=== PATIENT | female | born 1940 | race Caucasian/White ===

== ENCOUNTER 2022-09-07 11:20 | Outpatient (CLI) | payer MEDICARE, OTHER, SELFPAY ==
--- NOTE | 2022-09-07 11:30 | CRLHL7_ITS ---
For Patients: As a result of the Century Cures Act, medical imaging exams and procedure reports are released immediately into your electronic medical record. You may view this report before your referring provider. If you have questions, please contact your health care provider. BILATERAL SCREENING MAMMOGRAM WITH COMPUTER-AIDED DETECTION AND TOMOSYNTHESIS TECHNIQUE: CC and MLO views were obtained. These mammographic images have been obtained using full-field digital technique. These mammographic images were interpreted with the benefit of computer-aided detection. Breast Tomosynthesis was used in this interpretation. COMPARISON FILM: 06/06/21, 09/01/19, 07/02/18. FINDINGS: The breasts are heterogeneously dense, which may obscure small masses IMPRESSION: There is no radiographic evidence for malignancy. ASSESSMENT: BI-RADS Category 1: Negative RECOMMENDATION: Routine screening mammogram in 1 year. A lay language report of this examination will be provided to the patient. Parish Chen M.D. Diagnostic Radiologist [email or web address] FARHANA/Dictated by: Parish Chen MD @ 09/10/2022 9:04:00 AM (Electronically Signed)
== END 2022-09-07 11:21 | disposition home or self-care (01) ==
LOC: MAMMO 11:20
PROVIDERS: PCP Internal Medicine; Visit Provider Internal Medicine
DX: Z12.31 Encounter for screening mammogram for malignant neoplasm of breast (principal); R92.2 Inconclusive mammogram
CPT/HCPCS: 77063; 77067

== ENCOUNTER 2022-12-19 16:12 | Emergency (ER) | payer MEDICARE, OTHER, SELFPAY ==
[2022-12-19 16:26] VITALS: BP 142/71; PULSE 88; RESP 20; TEMP 37.2; O2SAT 94; BMI 38.4
--- NOTE | 2022-12-19 17:21 | CRLHL7_ITS ---
For Patients: As a result of the Century Cures Act, medical imaging exams and procedure reports are released immediately into your electronic medical record. You may view this report before your referring provider. If you have questions, please contact your health care provider. INDICATION: COVID-19 positive. COMPARISON: None available. FINDINGS: PA and lateral views of the chest were obtained. There is mild hyperinflation, consistent with COPD. There is eventration of the right hemidiaphragm. The lungs are otherwise clear, with no sign of infiltrate to suggest COVID-19 infection. The heart is top-normal in size. The mediastinum is normal in appearance. There is mild scoliosis of the thoracic spine convex towards the right and of the upper lumbar spine convex towards the left. Multiple surgical clips are seen in the area of the gastric fundus.. IMPRESSION: No active disease seen in the chest. Specifically, nothing seem to suggest COVID-19 pneumonia. Dictated by Vikram Butts MD @ 12/19/2022 6:32:32 PM (Electronically Signed)
--- NOTE | 2022-12-19 17:36 | ED.GENADULT ---
HPI - General Adult General Chief complaint: Shortness of Breath/Dyspnea Stated complaint: COVID+ Today,Chest Tightness Time Seen by Provider: 12/19/22 16:32 History of Present Illness HPI narrative: This 82-year-old female comes in with a report of respiratory symptoms that began yesterday. She tested positive for COVID this morning. She states that she had a fever of 101? F and feels some tightness in her chest. She arrives here with normal vital signs including oximetry at 94%, respirations at 20, and temperature at 98.9?. She is not using accessory muscles for breathing. Related Data Home Medications Medication Instructions Recorded Confirmed amlodipine 5 mg tablet mg 12/19/22 omeprazole 20 mg capsule,delayed mg 12/19/22 release Previous Rx's Medication Instructions Recorded acetaminophen 300 mg-codeine 30 mg 1 tab PO Q6H PRN pain #20 tabs 12/19/22 tablet Allergies Allergy/AdvReac Type Severity Reaction Status Date / Time No Known Drug Allergies Allergy Verified 12/19/22 16:31 Review of Systems Status of ROS: Reports: 10 or more systems reviewed and unremarkable except as noted in History and below Narrative: Constitutional: No fevers, no weight gain or loss. Eyes: No discharge. No vision changes. HENT: No congestion, no sore throat, no ear pain. Cardiovascular: No palpitations. She does not report any chest pain but states that she has some tightness in her chest. Respiratory: No shortness of breath, no wheezes, no cough. Gastrointestinal: No abdominal pain, no vomiting, no diarrhea. Genitourinary: No dysuria, no hematuria. Musculoskeletal: Normal range of motion. Skin: No rashes, no pruritis. Neurological: No dizziness, weakness, sensory change, speech change. Endo/Heme/Allergies: No bruising or bleeding. No polydipsia. Pysch: no suicidality, no anxiety, no insomnia. All other systems reviewed and are negative. [facility] Medical History (Updated 12/19/22 @ 19:00 by Wily Soria MD) B12 deficiency Exam Narrative: Exam Narrative: Constitutional: Well-developed, well-nourished, no acute distress. HEENT: Normocephalic, atraumatic. Neck: Normal range of motion. Nontender. Supple. Heart: Regular. No murmurs. Normal rate. Intact distal pulses. Lungs: Clear to auscultation. No chest discomfort. No wheezes, rhonchi, or rales. Abdomen: Normal bowel sounds. Nontender. No rebound tenderness. Genitalia: Deferred. Back: No midline tenderness. Normal range of motion. Extremities: Normal range of motion. No injury. Skin: Intact. No rash. Warm. No erythema or pallor. Neurologic: No altered sensation. No weakness. Alert and oriented. Psychiatric: No suicidality. No anxiety or depression. No insomnia. Nursing notes and vitals signs are reviewed. Const: Vital Signs, click to edit/add: Vital Signs - 24 hr 12/19/22 16:26 Temperature 98.9 F Pulse Rate [Pulse Oximeter] 88 Respiratory Rate 20 Blood Pressure [Ri ght Upper Arm] 142/71 H Pulse Oximetry 94 Oxygen Delivery Me thod Room Air Course Vital Signs Vital signs: Initial Vital Signs Temperature 98.9 F 12/19/22 16:26 Temperature Source Temporal Artery Scan 12/19/22 16:26 Pulse Rate 88 12/19/22 16:26 Respiratory Rate 20 12/19/22 16:26 Blood Pressure 142/71 H 12/19/22 16:26 Blood Pressure Mean 94 12/19/22 16:26 Blood Pressure Position Supine 12/19/22 16:26 Pulse Oximetry 94 12/19/22 16:26 Oxygen Delivery Method 12/19/22 16:26 Vital Signs Temperature 98.9 F 12/19/22 16:26 Pulse Rate 88 12/19/22 16:26 Respiratory Rate 20 12/19/22 16:26 Blood Pressure 142/71 H 12/19/22 16:26 Pulse Oximetry 94 12/19/22 16:26 Oxygen Delivery Method 12/19/22 16:26 Temperature 98.9 F 12/19/22 16:26 Pulse Rate 88 12/19/22 16:26 Respiratory Rate 20 12/19/22 16:26 Blood Pressure 142/71 H 12/19/22 16:26 Pulse Oximetry 94 12/19/22 16:26 Oxygen Delivery Method 12/19/22 16:26 Medical Decision Making MDM Narrative Medical decision making narrative: This patient comes in with respiratory symptoms and was positive for COVID this morning. She was concerned about some chest tightness and states also that her mother when she was her age had a spot on her lungs. A chest x-ray was ordered and completed showing no acute findings. She is reassured with these results. I did prescribe Tylenol 3 for symptomatic relief and encouraged her to return if worsening symptoms happen. Imaging Data Chest x-ray: Radiologist's impression: No active disease seen in the chest. Specifically, nothing seem to suggest COVID-19 pneumonia. Discharge Plan Discharge Clinical Impression: COVID-19 Patient Disposition: Home, Self-Care Condition: Stable Additional Instructions: Take medication as needed and indicated. Use [id number] medicines also as needed and directed. Follow up with MD or return if worsening. Prescriptions: New acetaminophen-codeine 300-30 mg tablet 1 tab PO Q6H PRN (Reason: pain) Qty: 20 0RF No Action amlodipine 5 mg tablet Label Comments: TAKE 1 TABLET BY MOUTH DAILY omeprazole 20 mg capsule,delayed release(DR/EC) Label Comments: TAKE 1 CAPSULE BY MOUTH DAILY Follow Up/Referrals: uRby Timmons MD [Primary Care Provider] - Stand Alone Forms: [employer] Info Instructions
== END 2022-12-19 19:10 | disposition home or self-care (01) ==
PROVIDERS: Emergency Provider Emergency Medicine Emergency Medical Services; PCP Internal Medicine
DX: U07.1 COVID-19 (principal)
CPT/HCPCS: 71046; 99283; 99284

== ENCOUNTER 2023-04-09 10:34 | Outpatient (CLI) | payer MEDICARE, OTHER, SELFPAY | END 2023-04-09 10:35 | disposition home or self-care (01) | PROVIDERS: PCP Internal Medicine; Visit Provider Internal Medicine | DX: I10 Essential (primary) hypertension (principal); E53.8 Deficiency of other specified B group vitamins; E66.9 Obesity, unspecified; E04.1 Nontoxic single thyroid nodule; Z98.84 Bariatric surgery status; Z13.21 Encounter for screening for nutritional disorder; E21.1 Secondary hyperparathyroidism, not elsewhere classified | CPT/HCPCS: 82310; 82525; 82607; 82728; 83735; 83970; 84443; 84446; 84590; 84597; 84630 ==

== ENCOUNTER 2024-04-16 09:03 | Outpatient (CLI) | payer MEDICARE, OTHER, SELFPAY ==
--- OUTSIDE RECORDS SUMMARY | 2024-04-16 09:07 | XMS_ITS | Encounter Summary ---
Author Organization [facility] Address [address] [place] [address]. [place] [address] Care Team Providers Care People Greeter Name Role Phone No Ref-Primary, Physician Primary Care Provider Encounter Details Date Type Department Care Team (Late st Contact Info) Description 11/23/2016 Records - [facility] CONVERSION Scan, Non-Provider Social History Tobacco Use Types Packs/Day Years Used Date Smoking Tobacco: Never Assessed Sex and Gender Information Value Date Recorded Sex Assigned at Not on file Gender Identity Not on file Sexual Orientation Not on file documented as of this encounter Plan of Treatment Not on file documented as of this encounter Visit Diagnoses Not on filedocumented in this encounter Care Teams People Greeter Relationship Specialty Start Date End Date No Ref-Primary, Physician PCP - General 09/28/19 documented as of this encounter
--- OUTSIDE RECORDS SUMMARY | 2024-04-16 09:07 | XMS_ITS | Clinical Summary ---
Author Organization [facility] Address [address] [place] [address]. [place] [address] Care Team Providers Care Division Chief Name Role Phone No Ref-Primary, Physician Primary Care Provider Allergies No known active allergies Medications Medication Sig Dispensed Refills Start Date End Date Status senna-docusate (SENNOSIDES-DOCUSATE SODIUM) 8.6-50 mg tablet [SENNA-DOCUSATE (SENNOSIDES-DOCUSA TE SODIUM) 8.6-50 MG TABLET] Take 1 tablet by mouth daily as needed. 10/12/2016 Active oxyCODONE-acetaminophe n (PERCOCET) 5-325 mg per tablet [OXYCODONE-ACETAMI NOPHEN (PERCOCET) 5-325 MG PER TABLET] Take 1 tablet by mouth every 4 (four) hours as needed for pain. 10/12/2016 Active cyanocobalamin 1,000 mcg/mL injection [CYANOCOBALAMIN 1,000 MCG/ML INJECTION] Inject 1,000 mcg into the shoulder, thigh, or buttocks. Every other month 10/12/2016 Active omeprazole (PRILOSEC) 20 MG capsule [OMEPRAZOLE (PRILOSEC) 20 MG CAPSULE] Take 20 mg by mouth daily. 10/12/2016 Active cholecalciferol, vitamin D3, 2,000 unit Tab [CHOLECALCIFEROL, VITAMIN D3, 2,000 UNIT TAB] Take 1 tablet by mouth daily. 10/12/2016 Active Resolved Problems Problem Noted Date Diagnosed Date Resolved Date Stiffness of right hand joint 09/28/2019 11/02/2019 Immunizations Name Administration Dates Next Due Flu, Unspecified 10/01/2016 Family History Medical History Relation Comments Alcoholism Father of alcohol use related complications. Cancer Mother of lung can cer. Relation Status Comments Father Mother Social History Tobacco Use Types Packs/Day Years Used Date Smoking Tobacco: Never Smokeless Tobacco: Never Alcohol Use Standard Drinks/Week Comments Yes 0 (1 standard drink = 0.6 oz pur e alcohol) Alcoholic Drinks/day: Rare Sex and Gender Information Value Date Recorded Sex Assigned at Not on file Gender Identity Not on file Sexual Orientation Not on file Last Filed Vital Signs Vital Sign Reading Time Taken Comments Blood Pressure - - Pulse - - Temperature - - Respiratory Rate - - Oxygen Saturation - - Inhaled Oxygen Concentration - - Weight 102.9 kg (226 lb 12.8 oz) 11/23/2016 5:43 AM WINDOWS ADMIN Height 162.6 cm (5' 4) 11/21/2016 5:20 PM WINDOWS ADMIN Body Mass Index 38.93 11/21/2016 5:20 PM WINDOWS ADMIN Plan of Treatment Not on file Medical Devices Implanted Type Area Licensed Chemical Spray Technician Device Identifier Shelf Expiration Date Model / Serial / Lot Stent Percuflex Plus 6x26 [id number] - Sna Implanted:Qty : 1 on 10/15/2016 Stent Right: [employer]ter [employer] [id number] 02/06/2019 175-263 / NA / [id number] Stent Percuflex Plus 6x26 [id number] Implanted:Qty : 1 on 10/30/2016 Stent Right: [employer] 07/23/2019 [id number] / / [id number] Left Total Knee Care Teams Division Chief Relationship Specialty Start Date End Date No Ref-Primary, Physician PCP - General 09/28/19
--- OUTSIDE RECORDS SUMMARY | 2024-04-16 09:07 | XMS_ITS | Referral Summary ---
Author Organization [facility] Address [address] [place] [address]. [place] [address] Care Team Providers Care Sheetrock Applicator Name Role Phone No Ref-Primary, Physician Primary [...] Administration Dates Next Due Flu, Unspecified 10/01/2016 Social History Tobacco Use Types Packs/Day Years [...] (226 lb 12.8 oz) 11/23/2016 5:43 AM PACKING FLOOR WORKER Height 162.6 cm (5' 4) 11/21/2016 5:20 PM PACKING FLOOR WORKER Body Mass Index 38.93 11/21/2016 5:20 PM PACKING FLOOR WORKER Plan of Treatment Not on file Medical Devices Implanted Type Area Tutoring Manager Device Identifier Shelf Expiration Date Model / Serial / Lot Stent Percuflex Plus 6x26 [id number] - Sna Implanted:Qty : 1 on 10/15/2016 Stent Right: [employer]ter [employer] [id number] 02/06/2019 175-263 / NA / [id number] Stent Percuflex Plus 6x26 [id number] Implanted:Qty : 1 on 10/30/2016 Stent Right: [employer] 07/23/2019 [id number] / / [id number] Left Total Knee Care Teams Sheetrock Applicator Relationship Specialty Start Date End Date No Ref-Primary, Physician PCP - General 09/28/19
--- OUTSIDE RECORDS SUMMARY | 2024-04-16 09:07 | XMS_ITS | Clinical Summary ---
Author Organization [email or web address] Address [place], [place] [address] Care Team Providers Care Automobile Relocation Engineer Name Role Phone Geneva Monsivais MD Primary Care Provider Breonna lable Allergies No known active allergies Medications Medication Sig Dispensed Refills Start Date End Date Status furosemide (LASIX) 20 mg tabletIndications:Gregorytaran albert, unspecified type Take 1 tablet by mouth 2 times daily. 90 tablet 2 07/10/2019 Active amLODIPine (NORVASC) 2.5 mg tablet Take 1 tablet by mouth once daily. 0 07/20/2019 Active cyanocobalamin (VITAMIN B12) 1,000 mcg/mL injection Inject 1 mL intramuscular. Every other month. 0 07/20/2019 Active omeprazole (PRILOSEC) 20 mg Delayed-Release capsule Take 1 capsule by mouth once daily before a meal. 0 07/20/2019 Active Cholecalciferol, Vitamin D3, (VITAMIN D-3) 2,000 unit tablet Take 1 tablet by mouth once daily. 0 07/20/2019 Active Social History Tobacco Use Types Packs/Day Years Used Date Smoking Tobacco: Never Smokeless Tobacco: Never Alcohol Use Standard Drinks/Week Comments Yes 0 (1 standard drink = 0.6 oz pur e alcohol) very rare Sex and Gender Information Value Date Recorded Sex Assigned at Not on file Gender Identity Not on file Sexual Orientation Not on file Obstetrics History Last Filed Vital Signs Vital Sign Reading Time Taken Comments Blood Pressure 160/80 09/18/2019 10:27 AM CDT Pulse 59 09/18/2019 10:27 AM CDT Temperature - - Respiratory Rate 16 07/20/2019 1:28 PM CDT Oxygen Saturation 96% 07/20/2019 1:28 PM CDT on room air Inhaled Oxygen Concentration - - Weight 103.4 kg (228 lb) 09/18/2019 10:27 AM CDT Height 165.1 cm (5' 5) 09/18/2019 10:27 AM CDT Body Mass Index 37.94 09/18/2019 10:27 AM CDT Plan of Treatment Health Maintenance Due Date Last Done Comments Tdap 1953 Depression screening for age 12+ 1954 Tetanus booster 1962 Zoster (shingles) series for age 50+ (1 of 2) 06/28/19 92 DEXA/DXA scan for age 65+ 2007 Pneumococcal series for age 65+ (1 of 1 - PCV) 007 BMI (ht and wt on same day) for age 18+ 07/20/2020 0 07/20/2019 COVID-19 vaccine series ( - 2022-24 season) 3 Influenza for age 65+ 07/26/2024 Care Teams Automobile Relocation Engineer Relationship Specialty Start Date End Date Geneva Monsivais MD PCP - General Family Practice 07/07/19
== END 2024-04-16 09:04 | disposition home or self-care (01) ==
PROVIDERS: PCP Internal Medicine; Visit Provider Internal Medicine
DX: I10 Essential (primary) hypertension (principal); E53.8 Deficiency of other specified B group vitamins; M81.0 Age-related osteoporosis without current pathological fracture; Z98.84 Bariatric surgery status; Z13.21 Encounter for screening for nutritional disorder; Z13.29 Encounter for screening for other suspected endocrine disorder; E04.1 Nontoxic single thyroid nodule; Z13.0 Encounter for screening for diseases of the blood and blood-forming organs and certain disorders involving the immune mechanism
CPT/HCPCS: 80053; 82306; 82525; 82607; 82728; 83540; 83550; 83735; 84443; 84446; 84590; 84597; 84630

== ENCOUNTER 2024-05-29 22:06 | Emergency (ER) | payer MEDICARE, OTHER, SELFPAY ==
[2024-05-29 22:10] VITALS: BP 206/94; PULSE 86; RESP 18; TEMP 36.1; O2SAT 96; BMI 38.1
--- NOTE | 2024-05-29 22:33 | CRLHL7_ITS ---
For Patients: As a result of the Century Cures Act, medical imaging exams and procedure reports are released immediately into your electronic medical record. You may view this report before your referring provider. If you have questions, please contact your health care provider. INDICATION: Left abdominal pain, history of kidney stones. TECHNIQUE: CT of the abdomen and pelvis without IV contrast. Coronal and sagittal reconstructions. COMPARISON: CT of the abdomen and pelvis 12/04/2017. FINDINGS: The unenhanced liver, gallbladder, pancreas, and adrenal glands are normal in appearance. Stable small splenic hypodensities. No biliary dilation. The right kidney is severely atrophic. No right hydronephrosis or ureteral dilation. There is a 4 mm obstructing stone at the left ureterovesicular junction with moderate upstream left hydroureteronephrosis and perinephric fat stranding (series 2, image 131). 8 mm nonobstructing caliceal stone in the lower pole of the left kidney. Decompressed urinary bladder. Stable calcification in the right uterus. Postoperative changes of Pauline-en-Y gastric bypass. No small bowel dilation. Moderate amount of stool. The appendix is not identified. No intraperitoneal free air or fluid. No lymphadenopathy. Aortoiliac vascular calcifications. Small fat containing umbilical hernia. Postoperative changes of the upper anterior abdominal wall. Linear atelectasis or scarring in the lung bases. Few scattered small noncalcified pulmonary nodules measuring 2-3 mm. These are not definitely visualized on prior exam. Dense mitral annulus calcifications. Degenerative changes of the spine. IMPRESSION: 1. 4 mm obstructing stone at the left UVJ with moderate left hydroureteronephrosis. 2. The right kidney is severely atrophic. 3. Few noncalcified pulmonary nodules measuring 2-3 mm. Follow-up per Fleischner society guidelines. Please note that all CT scans at this facility use dose modulation, iterative reconstruction, and/or weight-based dosing when appropriate to reduce radiation dose to as low as reasonably achievable. Dictated by Myah Figueroa MD @ 05/29/2024 11:55:33 PM (Electronically Signed)
--- NOTE | 2024-05-29 22:34 | ED_ITS ---
HPI - General Adult General Chief complaint: Flank Pain Stated complaint: Severe Pain going from her L side to her back Time Seen by Provider: 05/29/24 22:29 History of Present Illness HPI narrative: This 83-year-old female comes in reporting left flank pain radiating down into her left abdomen and groin. These symptoms started today. She does have a history of kidney stones. She reports some dysuria symptoms with increased frequency in small amount being voided. Related Data Home Medications ?Medication ?Instructions ?Recorded ?Confirmed cholecalciferol (vitamin D3) 50 2,000 unit PO DAILY 01/22/23 04/16/24 mcg (2,000 unit) tablet cyanocobalamin (vitamin B-12) 1,000 mcg IM MONTHLY 01/22/23 04/16/24 1,000 mcg/mL injection solution multivitamin (Multiple Vitamins 1 tab PO QAM 01/22/23 04/16/24 tablet) Previous Rx's ?Medication ?Instructions ?Recorded amlodipine 5 mg tablet 5 mg PO QDAY #90 tabs 04/16/24 furosemide 20 mg tablet 20 mg PO QAM #90 tabs 04/16/24 valsartan 160 mg tablet 160 mg PO DAILY #90 tabs 04/16/24 omeprazole 20 mg capsule,delayed 20 mg PO QDAY #90 caps 05/12/24 release Allergies Allergy/AdvReac Type Severity Reaction Status Date / Time No Known Drug Allergies Allergy Verified 04/16/24 08:18 Review of Systems Status of ROS: Reports: 10 or more systems reviewed and unremarkable except as noted in History and below Narrative: Constitutional: No fevers, no weight gain or loss. Eyes: No discharge. No vision changes. HENT: No congestion, no sore throat, no ear pain. Cardiovascular: No chest pain, no palpitations. Respiratory: No shortness of breath, no wheezes, no cough. Gastrointestinal: No vomiting, no diarrhea. Left flank pain and abdominal pain as described above. Genitourinary: No dysuria, no hematuria. Musculoskeletal: Normal range of motion. Skin: No rashes, no pruritis. Neurological: No dizziness, weakness, sensory change, speech change. Endo/Heme/Allergies: No bruising or bleeding. No polydipsia. Pysch: no suicidality, no anxiety, no insomnia. All other systems reviewed and are negative. [facility] Medical History (Updated 05/30/24 @ 00:08 by Wily Soria MD) Thyroid nodule ?E04.1 - Nontoxic single thyroid nodule (ICD-10) Colon polyp ?K63.5 - Polyp of colon (ICD-10) Surgical History (Updated 04/09/23 @ 10:25 by Ruby Timmons MD) History of basal cell carcinoma excision ?Z98.890 - Other specified postprocedural states (ICD-10) ?Z85.828 - Personal history of other malignant neoplasm of skin (ICD-10) Status post oophorectomy History of total left knee replacement ?Z96.652 - Presence of left artificial knee joint (ICD-10) History of blepharoplasty ?Z98.890 - Other specified postprocedural states (ICD-10) History of arthroscopic knee surgery ?Z98.890 - Other specified postprocedural states (ICD-10) History of appendectomy ?Z90.49 - Acquired absence of other specified parts of digestive tract (ICD- 10) Social History (Updated 04/15/24 @ 10:12 by Ruby Agarwal ~ [facility]) What is your current living situation?: I presently have a place to live Problems where you live: no known problems In the past 12 months, utilities in danger of being shut off: no In past 12 months, lack of transportation kept you from medical appts, meetings, work, or getting things needed for daily living: no In the past 12 mos, have been you worried that your food would run out before you had money to buy more?: never true In the past 12 mos, the food you bought just didn't last and you didn't have money to buy more?: never true Smoking Status: Never smoker How often do you have a drink containing alcohol: never AUDIT-C Alcohol total score: 0 Non-prescribed substance use: denies use How often does anyone, including family, friends and others, physically hurt you : never How often does anyone, including family, friends and others, insult or talk down to you: never How often does anyone, including family, friends and others, threaten you with harm: never How often does anyone, including family, friends and others, scream or curse at you: never Little interest or pleasure in doing things: not at all Feeling down, depressed, or hopeless: not at all Exam Narrative: Exam Narrative: Constitutional: Well-developed, well-nourished, no acute distress. HEENT: Normocephalic, atraumatic. Neck: Normal range of motion. Nontender. Supple. Heart: Regular. No murmurs. Normal rate. Intact distal pulses. Lungs: Clear to auscultation. No chest discomfort. No wheezes, rhonchi, or rales. Abdomen: Normal bowel sounds. Left abdomen and flank pain. No rebound tenderness. Genitalia: Deferred. Back: No midline tenderness. Normal range of motion. Extremities: Normal range of motion. No injury. Skin: Intact. No rash. Warm. No erythema or pallor. Neurologic: No altered sensation. No weakness. Alert and oriented. Psychiatric: No suicidality. No anxiety or depression. No insomnia. Nursing notes and vitals signs are reviewed. Const: Vital Signs, click to edit/add: Vital Signs - 24 hr 05/29/24 22:10 Temperature 97.0 F L Pulse Rate [Left P ulse Oximeter] 86 Respiratory Rate 18 Blood Pressure [Ri ght Upper Arm] 206/94 H Pulse Oximetry 96 Oxygen Delivery Me thod Room Air Course Vital Signs Vital signs: Initial Vital Signs Temperature 97.0 F L 05/29/24 22:10 Temperature Source Temporal Artery Scan 05/29/24 22:10 Pulse Rate 86 05/29/24 22:10 Pulse Rhythm Regular 05/29/24 22:10 Respiratory Rate 18 05/29/24 22:10 Blood Pressure 206/94 H 05/29/24 22:10 Blood Pressure Mean 131 H 05/29/24 22:10 Blood Pressure Position Sitting 05/29/24 22:10 Pulse Oximetry 96 05/29/24 22:10 Oxygen Delivery Method Room Air 05/29/24 22:10 Vital Signs Temperature 97.0 F L 05/29/24 22:10 Pulse Rate 86 05/29/24 22:10 Respiratory Rate 18 05/29/24 22:10 Blood Pressure 206/94 H 05/29/24 22:10 Pulse Oximetry 96 05/29/24 22:10 Oxygen Delivery Method Room Air 05/29/24 22:10 Temperature 97.0 F L 05/29/24 22:10 Pulse Rate 86 05/29/24 22:10 Respiratory Rate 18 05/29/24 22:10 Blood Pressure 206/94 H 05/29/24 22:10 Pulse Oximetry 96 05/29/24 22:10 Oxygen Delivery Method Room Air 05/29/24 22:10 Medications Administered Medications: Discontinued Medications Generic Name Dose Route Start Last Admin Trade Name Floyd PRN Reason Stop Dose Admin Hydromorphone HCl 0.5 mg 05/29/24 22:32 05/29/24 23:02 Hydromorphone 0.5 Mg/0.5 Ml Inj IVP 05/29/24 22:33 0.5 mg ONCE ONE Administration Ketorolac Tromethamine 30 mg 05/29/24 22:32 05/29/24 23:02 Ketorolac 30 Mg/Ml Inj IVP 05/29/24 22:33 30 mg ONCE ONE Administration Ondansetron HCl 4 mg 05/29/24 22:32 05/29/24 23:02 Ondansetron 2 Mg/Ml Inj IVP 05/29/24 22:33 4 mg ONCE ONE Administration Medical Decision Making MDM Narrative Medical decision making narrative: This patient comes in with left flank pain that is suspicious for kidney stone. She has had kidney stones in the past. CT imaging of the abdomen and pelvis does show a 4 mm stone at the left ureterovesical junction. The patient did have an IV established where she received Toradol and Dilaudid with excellent results. She is okay to be discharged home and did receive [facility] prescriptions for Toradol and tramadol. Lab Data Labs: Lab Results 05/29/24 Range/Units 22:48 Urine Color Yellow (Yellow) Urine Appearance Clear (Clear) Urine pH 7.5 (5.0-8.5) Ur Specific [place] 1.020 (1.000-1.030) Urine Protein 1+ A (Negative) Urine Glucose (UA) Negative (Negative) Urine Ketones Negative (Negative) Urine Blood 1+ A (Negative) Urine Nitrite Negative (Negative) Urine Bilirubin Negative (Negative) Urine Urobilinogen 0.2 (0.2-1.0) Ur Leukocyte Esterase 1+ A (Negative) Urine RBC 2-5 A (0-2) Urine WBC 2-5 (0-5) Ur Squamous Epith Cells Moderate A (None-Few) Urine Bacteria None (None) Imaging Data CT scan - abdomen: Radiologist's impression: 1. 4 mm obstructing stone at the left UVJ with moderate left hydroureteronephrosis. 2. The right kidney is severely atrophic. 3. Few noncalcified pulmonary nodules measuring 2-3 mm. Follow-up per Fleischner society guidelines. Discharge Plan Discharge Clinical Impression: Calculus, ureteral Patient Disposition: Home w/ Parent or Adult Condition: Improved Additional Instructions: Take medication as needed and directed. Follow up with MD return if worsening. Prescriptions: No Action multivitamin [Multiple Vitamins] Tablet 1 tab PO QAM cyanocobalamin (vitamin B-12) 1,000 mcg/mL solution 1,000 mcg IM MONTHLY cholecalciferol (vitamin D3) 50 mcg (2,000 unit) tablet 2,000 unit PO DAILY valsartan 160 mg tablet 160 mg PO DAILY Qty: 90 3RF furosemide 20 mg tablet 20 mg PO QAM Qty: 90 3RF amlodipine 5 mg tablet 5 mg PO QDAY Qty: 90 3RF Patient Comments: TAKE 1 TABLET BY MOUTH DAILY omeprazole 20 mg capsule,delayed release(DR/EC) 20 mg PO QDAY Qty: 90 3RF Patient Comments: TAKE 1 CAPSULE BY MOUTH DAILY Follow Up/Referrals: Ruby Timmons MD [Primary Care Provider] - Stand Alone Forms: [employer] Info Instructions
--- OUTSIDE RECORDS SUMMARY | 2024-05-29 22:47 | XMS_ITS | Clinical Summary ---
Author Organization [facility] Address [address] [place] [address]. [place] [address] Care Team Providers Care Freight Tallier Name Role Phone No Ref-Primary, Physician Primary [...] (226 lb 12.8 oz) 11/23/2016 5:43 AM RELAY MAN Height 162.6 cm (5' 4) 11/21/2016 5:20 PM RELAY MAN Body Mass Index 38.93 11/21/2016 5:20 PM RELAY MAN Plan of Treatment Not on file Medical Devices Implanted Type Area Documentation Improvement Specialist Device Identifier Shelf Expiration Date Model / Serial / Lot Stent Percuflex Plus 6x26 175-263 - Sna Implanted:Qty : 1 on 10/15/2016 Stent Right: Ureter [employer] [id number] 02/06/2019 175-263 / NA / [id number] Stent Percuflex Plus 6x26 175-263 Implanted:Qty : 1 on 10/30/2016 Stent Right: Ureter [employer] 07/23/2019 175-263 / / [id number] Left Total Knee Care Teams Freight Tallier Relationship Specialty Start Date End Date No Ref-Primary, Physician PCP - General 09/28/19
--- OUTSIDE RECORDS SUMMARY | 2024-05-29 22:47 | XMS_ITS | Encounter Summary ---
Author Organization [facility] Address [address] [place] [address]. [place] [address] Care Team Providers Care Regulatory Compliance Engineer Name Role Phone No Ref-Primary, Physician Primary [...] on filedocumented in this encounter Care Teams Regulatory Compliance Engineer Relationship Specialty Start Date End Date No Ref-Primary, Physician PCP - General 09/28/19 documented as of this encounter
--- OUTSIDE RECORDS SUMMARY | 2024-05-29 22:47 | XMS_ITS | Referral Summary ---
Author Organization [facility] Address [address] [place] [address]. [place] [address] Care Team Providers Care Residential Care Officer Name Role Phone No Ref-Primary, Physician Primary [...] (226 lb 12.8 oz) 11/23/2016 5:43 AM DISTRIBUTION A CLASS LINEMAN Height 162.6 cm (5' 4) 11/21/2016 5:20 PM DISTRIBUTION A CLASS LINEMAN Body Mass Index 38.93 11/21/2016 5:20 PM DISTRIBUTION A CLASS LINEMAN Plan of Treatment Not on file Medical Devices Implanted Type Area Side Stitcher Device Identifier Shelf Expiration Date Model / Serial / Lot Stent Percuflex Plus 6x26 175-263 - Sna Implanted:Qty : 1 on 10/15/2016 Stent Right: Ureter [employer] [id number] 02/06/2019 175-263 / NA / [id number] Stent Percuflex Plus 6x26 175-263 Implanted:Qty : 1 on 10/30/2016 Stent Right: Ureter [employer] 07/23/2019 175-263 / / [id number] Left Total Knee Care Teams Residential Care Officer Relationship Specialty Start Date End Date No Ref-Primary, Physician PCP - General 09/28/19
--- OUTSIDE RECORDS SUMMARY | 2024-05-29 22:47 | XMS_ITS | Clinical Summary ---
Author Organization [facility] Address [place], [place] [address] Care Team Providers Care Slasher Sawyer Name Role Phone Geneva Monsivais MD Primary [...] Influenza for age 65+ 07/26/2024 Care Teams Slasher Sawyer Relationship Specialty Start Date End Date Geneva Monsivais MD PCP - General Family Practice 07/07/19
[2024-05-29 22:55] LABS: Appearance Urine Clear (Clear); Bilirubin Urine Negative (Negative); Blood Urine 1+ (Negative); Color Urine Yellow (Yellow); Glucose Urine Negative (Negative); Ketones Urine Negative (Negative); Leukocyte Esterase Urine 1+ (Negative); Nitrite Urine Negative (Negative); Protein Urine 1+ (Negative); Urobilinogen Urine 0.2 (0.2-1.0); pH Urine 7.5 (5.0-8.5)
[2024-05-29 23:00] VITALS: O2SAT 98
[2024-05-29] MEDS: KETOROLAC 30 MG/ML inj IVP (23:02)
[2024-05-29] MEDS: HYDROmorphone 0.5 mg/0.5 ml inj IVP (23:02)
[2024-05-29] MEDS: ONDANSETRON 2 MG/ML inj 4 MG IVP (23:02)
[2024-05-29 23:20] LABS: Squamous Epithelial Cell Urine Moderate (None-Few)
[2024-05-29 23:30] VITALS: BP 114/61; PULSE 51; RESP 12; O2SAT 94
[2024-05-30] VITALS: BP 117/71; PULSE 70; RESP 14; O2SAT 91
[2024-05-30 00:31] VITALS: BP 141/77; PULSE 86; RESP 14; TEMP 36.1
== END 2024-05-30 00:32 | disposition home or self-care (01) ==
PROVIDERS: Emergency Provider Emergency Medicine Emergency Medical Services; PCP Internal Medicine
DX: N20.1 Calculus of ureter (principal)
CPT/HCPCS: 74176; 81001; 81003; 87086; 94761; 96374; 96375; 99284; J1170; J1885; J2405

== ENCOUNTER 2024-06-11 08:21 | Outpatient (CLI) | payer MEDICARE, OTHER, SELFPAY ==
--- OUTSIDE RECORDS SUMMARY | 2024-06-11 08:23 | XMS_ITS | Clinical Summary ---
Author Organization [facility] Address [address] [place] [address]. [place] [address] Care Team Providers Care Streaming Media Specialist Name Role Phone No Ref-Primary, Physician Primary [...] (226 lb 12.8 oz) 11/23/2016 5:43 AM CARBIDER Height 162.6 cm (5' 4) 11/21/2016 5:20 PM CARBIDER Body Mass Index 38.93 11/21/2016 5:20 PM CARBIDER Plan of Treatment Not on file Medical Devices Implanted Type Area Cnc Wood Lathe Operator Device Identifier Shelf Expiration Date Model / Serial / Lot Stent Percuflex Plus 6x26 175-263 - Sna Implanted:Qty : 1 on 10/15/2016 Stent Right: U[employer]ter [employer] [id number] 02/06/2019 175-263 / NA / [id number] Stent Percuflex Plus 6x26 175-263 Implanted:Qty : 1 on 10/30/2016 Stent Right: [employer]ter [employer] 07/23/2019 175-263 / / [id number] Left Total Knee Care Teams Streaming Media Specialist Relationship Specialty Start Date End Date No Ref-Primary, Physician PCP - General 09/28/19
--- OUTSIDE RECORDS SUMMARY | 2024-06-11 08:23 | XMS_ITS | Clinical Summary ---
Author Organization [facility] Address [place], [place] [address] Care Team Providers Care Planer Feeder Name Role Phone Geneva Monsivais MD Primary [...] Influenza for age 65+ 07/26/2024 Care Teams Planer Feeder Relationship Specialty Start Date End Date Geneva Monsivais MD PCP - General Family Practice 07/07/19
--- OUTSIDE RECORDS SUMMARY | 2024-06-11 08:24 | XMS_ITS | Encounter Summary ---
Author Organization [facility] Address [address] [place] [address]. [place] [address] Care Team Providers Care Elastic Yarn Twister Helper Name Role Phone No Ref-Primary, Physician Primary [...] on filedocumented in this encounter Care Teams Elastic Yarn Twister Helper Relationship Specialty Start Date End Date No Ref-Primary, Physician PCP - General 09/28/19 documented as of this encounter
--- OUTSIDE RECORDS SUMMARY | 2024-06-11 08:24 | XMS_ITS | Referral Summary ---
Author Organization [facility] Address [address] [place] [address]. [place] [address] Care Team Providers Care Label Remover Name Role Phone No Ref-Primary, Physician Primary [...] (226 lb 12.8 oz) 11/23/2016 5:43 AM CARROTING MACHINE OPERATOR Height 162.6 cm (5' 4) 11/21/2016 5:20 PM CARROTING MACHINE OPERATOR Body Mass Index 38.93 11/21/2016 5:20 PM CARROTING MACHINE OPERATOR Plan of Treatment Not on file Medical Devices Implanted Type Area High Lift Mule Operator Device Identifier Shelf Expiration Date Model / Serial / Lot Stent Percuflex Plus 6x26 175-263 - Sna Implanted:Qty : 1 on 10/15/2016 Stent Right: Ureter [employer] [id number] 02/06/2019 175-263 / NA / [id number] Stent Percuflex Plus 6x26 175-263 Implanted:Qty : 1 on 10/30/2016 Stent Right: Ureter [employer] 07/23/2019 175-263 / / [id number] Left Total Knee Care Teams Label Remover Relationship Specialty Start Date End Date No Ref-Primary, Physician PCP - General 09/28/19
[2024-06-11 08:55] LABS: Creatinine* 0.7 mg/dL (0.5-1.5); Estimated Glomerular Filt Rate 87 ml/min
--- NOTE | 2024-06-11 09:00 | CRLHL7_ITS ---
For Patients: As a result of the Century Cures Act, medical imaging exams and procedure reports are released immediately into your electronic medical record. You may view this report before your referring provider. If you have questions, please contact your health care provider. INDICATION: COUGH. FEELS LIKE THINGS ARE GETTING STUCK IN THROAT COMPARISON: 06/06/2021 TECHNIQUE: CT ST Neck 109CC ISOVUE 370. Please note that all CT scans at this facility use dose modulation, iterative reconstruction, and/or weight-based dosing when appropriate to reduce radiation dose to as low as reasonably achievable. FINDINGS: The CT images demonstrate normal aeration of the mastoid air cells and middle ear cavities. Mucosal thickening within the right maxillary sinus. The nasopharynx appears normal. The parotid and submandibular glands are of normal size and have uniform enhancement. The oropharynx appears normal. The valleculae, epiglottis, aryepiglottic folds and piriform sinuses appear normal. There is a normal appearance of the larynx and subglottic trachea. The thyroid gland is of normal size and has uniform density. There is no evidence of lymphadenopathy within the anterior and posterior cervical triangles or within the supraclavicular region. Degenerative changes are noted at C5-6. Mild scarring in the lung apices. IMPRESSION: No suspicious findings. Please note that all CT scans at this facility use dose modulation, iterative reconstruction, and/or weight-based dosing when appropriate to reduce radiation dose to as low as reasonably achievable. Dictated by Parish Chen MD @ 06/12/2024 10:13:30 AM (Electronically Signed)
--- NOTE | 2024-06-11 09:00 | CRLHL7_ITS ---
For Patients: As a result of the Century Cures Act, medical imaging exams and procedure reports are released immediately into your electronic medical record. You may view this report before your referring provider. If you have questions, please contact your health care provider. Indication: COUGH. FEELS LIKE THINGS ARE GETTING STUCK IN THROAT Technique: CT Chest 109CC [address]OV[address] 370 Please note that all CT scans at this facility use dose modulation, iterative reconstruction, and/or weight-based dosing when appropriate to reduce radiation dose to as low as reasonably achievable. Comparison: Chest x-ray 06/03/2024 Findings: The visualized thyroid is within normal limits. Breast parenchyma appears normal. No adenopathy in the mediastinum, vicenta or axilla. Gallbladder distended. No biliary obstruction. Postop changes to the stomach. Adrenal glands normal. Right renal cortical atrophy. Linear areas of subsegmental atelectasis/scar noted bilaterally. No pulmonary edema or pleural effusion. No consolidative density. The airways are clear. No vertebral body compression fracture. Slight curvature of the thoracic spine. Mild patchy areas of air trapping noted bilaterally. Impression: Mild patchy areas of air trapping noted bilaterally consistent with chronic small airway disease/COPD. No mediastinal mass or adenopathy. No pulmonary fibrosis or infiltrate. Please note that all CT scans at this facility use dose modulation, iterative reconstruction, and/or weight-based dosing when appropriate to reduce radiation dose to as low as reasonably achievable. Dictated by Parish Chen MD @ 06/12/2024 9:16:26 AM (Electronically Signed)
== END 2024-06-11 08:22 | disposition home or self-care (01) ==
LOC: CT 08:22
PROVIDERS: PCP Internal Medicine; Visit Provider Otolaryngology
DX: R05.9 Cough, unspecified (principal)
CPT/HCPCS: 36415; 70491; 71260; 82565; Q9967

== ENCOUNTER 2024-06-17 12:45 | Outpatient (CLI) | payer MEDICARE, OTHER, SELFPAY ==
--- OUTSIDE RECORDS SUMMARY | 2024-06-17 12:48 | XMS_ITS | Clinical Summary ---
Author Organization [facility] Address [place], [place] [address] Care Team Providers Care Street Light Cleaner Name Role Phone Geneva Monsivais MD Primary [...] Influenza for age 65+ 07/26/[address] Light Cleaner Relationship Specialty Start Date End Date Geneva Monsivais MD PCP - General Family Practice 07/07/19
--- OUTSIDE RECORDS SUMMARY | 2024-06-17 12:48 | XMS_ITS | Encounter Summary ---
Author Organization [facility] Address [address] [place] [address]. [place] [address] Care Team Providers Care Business Change Manager Name Role Phone No Ref-Primary, Physician Primary [...] on filedocumented in this encounter Care Teams Business Change Manager Relationship Specialty Start Date End Date No Ref-Primary, Physician PCP - General 09/28/19 documented as of this encounter
--- OUTSIDE RECORDS SUMMARY | 2024-06-17 12:48 | XMS_ITS | Clinical Summary ---
Author Organization [facility] Address [address] [place] [address]. [place] [address] Care Team Providers Care Tube Mill Operator Name Role Phone No Ref-Primary, Physician Primary [...] (226 lb 12.8 oz) 11/23/2016 5:43 AM MOTORBIKE COURIER Height 162.6 cm (5' 4) 11/21/2016 5:20 PM MOTORBIKE COURIER Body Mass Index 38.93 11/21/2016 5:20 PM MOTORBIKE COURIER Plan of Treatment Not on file Medical Devices Implanted Type Area Site Project Manager Device Identifier Shelf Expiration Date Model / Serial / Lot Stent Percuflex Plus 6x26 175-263 - Sna Implanted:Qty : 1 on 10/15/2016 Stent Right: U[employer]ter [employer] [id number] 02/06/2019 175-263 / NA / [id number] Stent Percuflex Plus 6x26 175-263 Implanted:Qty : 1 on 10/30/2016 Stent Right: U[employer]ter [employer] 07/23/2019 175-263 / / [id number] Left Total Knee Care Teams Tube Mill Operator Relationship Specialty Start Date End Date No Ref-Primary, Physician PCP - General 09/28/19
--- OUTSIDE RECORDS SUMMARY | 2024-06-17 12:48 | XMS_ITS | Referral Summary ---
Author Organization [facility] Address [address] [place] [address]. [place] [address] Care Team Providers Care Aviation Program Manager Name Role Phone No Ref-Primary, Physician [...] (226 lb 12.8 oz) 11/23/2016 5:43 AM BUSINESS DIRECTOR Height 162.6 cm (5' 4) 11/21/2016 5:20 PM BUSINESS DIRECTOR Body Mass Index 38.93 11/21/2016 5:20 PM BUSINESS DIRECTOR Plan of Treatment Not on file Medical Devices Implanted Type Area Animal Care Worker Device Identifier Shelf Expiration Date Model / Serial / Lot Stent Percuflex Plus 6x26 175-263 - Sna Implanted:Qty : 1 on 10/15/2016 Stent Right: [employer]ter [employer] [id number] 02/06/2019 175-263 / NA / [id number] Stent Percuflex Plus 6x26 175-263 Implanted:Qty : 1 on 10/30/2016 Stent Right: [employer]ter [employer] 07/23/2019 175-263 / / [id number] Left Total Knee Care Teams Aviation Program Manager Relationship Specialty Start Date End Date No Ref-Primary, Physician PCP - General 09/28/19
--- NOTE | 2024-06-17 13:00 | CRLHL7_ITS ---
For Patients: As a result of the Century Cures Act, medical imaging exams and procedure reports are released immediately into your electronic medical record. You may view this report before your referring provider. If you have questions, please contact your health care provider. DXA BONE MINERAL DENSITY STUDY Reason for exam: Osteoporosis. Current height (in): 64. Weight (lb): 218. Menopause age: 54. Ethnicity: White. 1. Have you had a previous hip or vertebral fracture? No. 2. Have you had any fractures during your adult life which did not result from significant trauma (e.g., auto accident)? No. 3. Did either of your parents have a hip fracture? No. 4. Do you smoke? No. 5. Have you ever taken Glucocorticoids? No. 6. Do you have rheumatoid arthritis? No. 7. Do you have secondary osteoporosis? No. 8. Do you drink 3 or more alcoholic drinks per day? No. 9. Are you being treated for osteoporosis? No. 10. Have you ever taken any of the following medications: Actonel, Evista, Fosamax, Miacalcin, Reclast, Boniva, Forteo, HRT (i.e. estrogen/hormone therapy), Protelos, Prolia, Vitamin D, Calcium, other ??? please specify. ANSWER: Yes, vitamin D, calcium. 11. Do you have any of the following medical conditions: Anorexia or bulimia, asthma or emphysema, end stage renal disease, hyperparathyroidism, any seizure disorders, cancer, inflammatory bowel diseases, hysterectomy, other ??? please specify. ANSWER: Yes, hyperparathyroidism. 12. What was your maximum height (inches)? 66. 13. Do you perform weight bearing exercise regularly? No. 14. Do you regularly consume dairy products? No. 15. Do you drink caffeinated beverages? Yes. 16. At what age did your period start? 17. 17. Are you premenopausal? No. 18. How many full term pregnancies have you had? 3. 19. Have you ever missed your period for more than 6 months in a row (not including or menopause)? No. TECHNIQUE: Bone mineral density study was performed using the [employer]. FINDINGS: The results of the study expressed as bone mineral density (BMD) are as follows: Lumbar spine L1, L3: BMD: 0.907 g/cm2. T-score: -1.0. Z-score: 1.7. Neck Left: BMD: 0.511 g/cm2. T-score: -3.0. Z-score: -0.7. Right: BMD: 0.508 g/cm2. T-score: -3.1. Z-score: -0.7. Total Left: BMD: 0 .654 g/cm2. T-score: -2.4. Z-score: -0.2. Right: BMD: 0.638 g/cm2. T-score: -2.5. Z-score: -0.3. IMPRESSION: Osteoporosis. *Comparison exams done prior to 04/2020 were performed on different unit, [employer]. COMPARISON: Compared with scan of 03/07/2017, the bone mineral density has increased by 7.6 percent at the spine and decreased by 5.6 percent at the hip. Parish Chen M.D. Diagnostic Radiologist [email or web address] [email or web address] / be/Dictated by: Parish Chen MD @ 06/18/2024 8:08:00 AM (Electronically Signed)
== END 2024-06-17 12:46 | disposition home or self-care (01) ==
LOC: RAD 12:46
PROVIDERS: PCP Internal Medicine; Visit Provider Internal Medicine
DX: M81.0 Age-related osteoporosis without current pathological fracture (principal)
CPT/HCPCS: 77080

== ENCOUNTER 2025-04-20 07:50 | Outpatient (CLI) | payer MEDICARE, OTHER, SELFPAY | END 2025-04-20 07:51 | disposition home or self-care (01) | LOC: NFLDREF 04-22 15:38 | PROVIDERS: PCP Internal Medicine; Referring Provider Internal Medicine; Visit Provider Internal Medicine | DX: M81.0 Age-related osteoporosis without current pathological fracture (principal); I10 Essential (primary) hypertension; E21.1 Secondary hyperparathyroidism, not elsewhere classified; E53.8 Deficiency of other specified B group vitamins; Z98.84 Bariatric surgery status; Z13.21 Encounter for screening for nutritional disorder | CPT/HCPCS: 80053; 80061; 82306; 82525; 82607; 82728; 83540; 83550; 83735; 84443; 84446; 84590; 84597; 84630 ==